=== PATIENT | female | born 2000 | race Caucasian/White ===

== ENCOUNTER 2020-11-18 15:24 | Emergency (ER) | payer SELFPAY ==
[~2020-11-18] VITALS: Ht 160 cm; Wt 100.0 kg
[2020-11-18 18:45] VITALS: BP 121/73
[2020-11-18] MEDS ORDERED: IBUP-1007 PO (18:46)
[2020-11-18] MEDS ORDERED: PRED-220 PO (18:47)
--- NOTE | 2020-11-18 18:48 | PHYS DOC ---
General Adult EDM: Chief Complaint: WRIST PAIN HPI: HPI: Patient is a 20 female presents to the emergency department complaining of numbness and tingling to her right hand and fingers for the past 2 weeks. Patient states she thinks she may have carpal tunnel syndrome. 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 Patient reports she purchased a thumb immobilizer to help however does not wear it while she works. Patient denies any injury to her right wrist or right hand. Patient denies any problems with her left wrist or hand. Patient states she is right-handed. Patient reports her last menstrual cycle 3 weeks ago, denies any other physical complaints or physical concerns. (SOFIA JACOBSON APRN) Review of Systems: Review of Systems: 14 body systems of review of systems have been reviewed. See HPI for pertinent positives and negative responses, otherwise all other systems are negative, nonpertinent or noncontributory. Constitutional: Negative except as outlined in HPI above. Skin: Negative except as outlined in HPI above. Eyes: Negative except as outlined in HPI above. HENT: Negative except as outlined in HPI above. Respiratory: Negative except as outlined in HPI above. Cardiovascular: Negative except as outlined in HPI above. GI: Negative except as outlined in HPI above. : Negative except as outlined in HPI above. Musculoskeletal: Negative except as outlined in HPI above. Integument: Negative except as outlined in HPI above. Neurologic: Negative except as outlined in HPI above. Endocrine: Negative except as outlined in HPI above. Lymphatic: Negative except as outlined in HPI above. Psychiatric: Negative except as outlined in HPI above. (SOFIA JACOBSON APRN) Heart Score: C/O Chest Pain: No Risk Factors: Risk Factors: DM, Current or recent (<one month) smoker, HTN, HLP, family history of CAD, obesity. Risk Scores: Score 0 - 3: 2.5% MACE over next 6 weeks - Discharge Home Score 4 - 6: 20.3% MACE over next 6 weeks - Admit for Clinical Observation Score 7 - 10: 72.7% MACE over next 6 weeks - Early Invasive Strategies (SOFIA JACOBSON APRN) Physical Exam: PE: Constitutional: Well developed, well nourished, no acute distress, non-toxic appearance. 20-year-old female in no apparent distress. HENT: Normocephalic, atraumatic. Eyes: Conjunctiva normal, no discharge. Neck: Normal range of motion, no stridor. Cardiovascular: No cyanosis appreciated, distal cap refill less than 2 seconds. Lungs & Thorax: Patient is in no respiratory distress, no audible adventitious lung sounds appreciated. Abdomen: Nontender, no abnormalities noted. Skin: Warm, dry, no erythema, no rash. Back: No tenderness, no deformities. Extremities: No tenderness, no cyanosis, no clubbing, ROM intact, no edema. Except for right wrist and hand. Positive [place]'s test, positive Phalen's test. No swelling or deformity appreciated. Distal cap refill less than 2 seconds, 2+ radial pulse. Full AROM/PROM. Neurologic: Alert and oriented X 3, normal motor function, normal sensory function, no focal deficits noted. Psychologic: Affect normal, judgement normal, mood normal. (SOFIA JACOBSON APRN) EKG: EKG: [] (SOFIA JACOBSON APRN) Radiology/Procedures: Radiology/Procedures: [] (SOFIA JACOBSON APRN) Course & Med Decision Making: Course & Med Decision Making Pertinent Labs and Imaging studies reviewed. (See chart for details) 20-year-old female, vital signs reviewed, presents to the emergency department with chief complaint of right wrist pain with hand tingliness for the past 2 weeks. Patient's description of events and physical examination consistent with carpal tunnel syndrome. An x-ray was ordered by ED attending physician Dr. Ham prior to patient's arrival to room or physical exam, wet read negative for acute fracture. Discussed findings with patient, will treat with 600 mg ibup rofen 3 times daily as needed pain, 20 mg prednisone p.o. daily x2 weeks followed by 10 mg prednisone p.o. x2 weeks, Velcro wrist splint. Follow-up with primary care for ongoing evaluation of carpal tunnel syndrome. Discussed with the patient all findings and diagnostic testing as well as the need to follow-up with their primary care provider for further evaluation and treatment or return to the ED if any new or worsening symptoms. Strict return precautions were also discussed at length, the patient voiced understanding and agreement with the discharge planning. The patient was nontoxic in appearance, in no apparent distress, and hemodynamically stable at the time of disposition. (SOFIA JACOBSON APRN) Course & Med Decision Making I have participated in the care of this patient and I have reviewed and agree with all pertinent clinical information above including history, exam, and recommendations. Lc Kaba DO (LC KABA DO) Fermin Disclaimer: Fermin Disclaimer: This electronic medical record was generated, in whole or in part, using a voice recognition dictation system. (SOFIA JACOBSON APRN) Departure Departure Impression: Primary Impression: Carpal tunnel syndrome of right wrist Disposition: HOME / SELF CARE / HOMELESS Condition: GOOD Referrals: NO PCP (PCP) Patient Instructions: Carpal Tunnel Syndrome, Carpal Tunnel Syndrome-SportsMed Additional Instructions: You were seen today in the emergency department for pain to your right wrist with tingling to your fingers of the right hand. Your Phalen's test and Tinel's test were positive indicating you most likely have a carpal tunnel syndrome. The x-ray performed did not show any concerning signs of fracture. As we discussed I am placing you on a nonsteroidal anti-inflammatory ibuprofen along with a oral steroid please take as directed. Please use the Velcro wrist splint as directed. Please follow-up with your primary care for ongoing evaluation of your carpal tunnel syndrome. Thank you for visiting our Emergency Department. It was a pleasure taking care of you today in the emergency department and we appreciate you trusting us with your care. If any additional problems come up don't hesitate to return to visit us. Please follow up with your primary care provider so they can plan additional care if needed and know about the problem that you had. If symptoms worsen come back to the Emergency Department. Any concerning symptoms that start such as chest pain, shortness of air, weakness or numbness on one side of the body, running high fevers or any other concerning symptoms return to the ER. EMERGENCY DEPARTMENT GENERAL DISCHARGE INSTRUCTIONS Thank you for coming to [facility] Emergency Department (ED) today and trusting us with you care. We trust that you had a positive experience in our Emergency Department. If you wish to speak to the department management, you may call the Director at [phone]. YOUR FOLLOW UP INSTRUCTIONS ARE FOLLOWS: 1. Do you have a private Doctor? If you do not have a private doctor, please ask for a resource list of physicians or clinics that may be able to assist you with follow up care. 2. The Emergency Physicain has interpreted your x-rays. The X-Ray specialist will also review them. If there is a change in the findings, you will be notified in 48 hours when at all possible. 3. A lab test or culture has been done, your results will be reviewed and you will be notified if you need a change in treatment. ADDITIONAL INSTRUCTIONS AND INFORMATION: 1. Your care today has been supervised by a physician who is specially trained in emergency care. Many problems require more than one evaluation for a complete diagnosis and treatment. We recommend that you schedule your follow up appointment as recommended to ensure complete treatment of you illness or injury. If you are unable to obtain follow up care and continue to have a problem, or if your condition worsens, we recommend that you return to the ED. 2. We are not able to safely determine your condition over the phone nor are we able to give sound medical advice over the phone. For these safety reasons, if you call for medical advice we will ask you to come to the ED for further evaluation. 3. If you have any questions regarding these discharge instructions please call the ED at [phone]. SAFETY INFORMATION: In the interest of safety, wellness, and injury prevention; we encourage you to wear your sealbelt, if you smoke; quite smoking, and we encourage family to use a protective helmet for bicycling and other sporting events that present an increased risk for head injury. IF YOUR SYMPTOMS WORSEN OR NEW SYMPTOMS DEVELOP, OR YOU HAVE CONCERNS ABOUT YOUR CONDITION; OR IF YOUR CONDITION WORSENS WHILE YOU ARE WAITING FOR YOUR FOLLOW UP APPOIN TMENT; EITHER CONTACT YOUR PRIMARY CARE DOCTOR, THE PHYSICIAN WHOSE NAME AND NUMBER YOU WERE GIVEN, OR RETURN TO THE ED IMMEDIATELY. Scripts Prednisone (PREDNISONE ) 10 Mg Tablet 10 MG PO DAILY, #42 TAB 0 Refills Take 2 tablets daily for 14 days, then reduce to 1 tablet daily for 14 days. Prov: SOFIA JACOBSON APRN 11/18/20 Ibuprofen (IBUPROFEN) 600 Mg Tablet 600 MG PO PRN Q6HRS PRN for INFLAMMATION, #20 TAB 0 Refills Prov: SOFIA JACOBSON APRN 11/18/20 SOFIA JACOBSON APRN Nov 18, 2020 18:48 LC KABA DO Nov 18, 2020 19:01
--- NOTE | 2020-11-18 18:53 | RAD ---
RIGHT WRIST, 3 VIEWS Indication: Reason: pain / Findings: There is no acute fracture or dislocation. No bony erosion is identified. The bony articulations are normal. The mineralization is normal. There is no soft tissue swelling or radiopaque foreign body. IMPRESSION: No acute fracture or dislocation. Electronically signed by: Kee Willett MD (11/18/2020 6:50 PM) RANDALLVARGHESE
[2020-11-18] MEDS ORDERED: predniSONE 20 MG TABLET PO ONE (19:15)
[2020-11-18] MEDS ORDERED: IBUPROFEN 200 MG TABLET. PO ONE (19:15)
== END 2020-11-18 19:25 | disposition home or self-care (01) ==
LOC: ER 15:24
DX: G56.01 Carpal tunnel syndrome, right upper limb (principal)
CPT/HCPCS: 29125; 73110; 99283; J7512

== ENCOUNTER 2021-07-07 11:29 | Emergency (ER) | payer SELFPAY ==
[~2021-07-07] VITALS: Ht 162.6 cm; Wt 108.4 kg
[2021-07-07 11:29] VITALS: BP 147/93
[~2021-07-07 11:29] MED LIST: IBUP-1007 PO; PRED-220 PO
[2021-07-07 12:34] LABS: INFLUENZA A PATIENT NEGATIVE (NEGATIVE); INFLUENZA B PATIENT NEGATIVE (NEGATIVE)
--- NOTE | 2021-07-07 12:48 | RAD ---
INDICATION: Reason: cough and fever / Spl. Instructions: / History: COMPARISON: None. FINDINGS: 2 view of chest obtained. Patchy opacity at the right lower lung with a possible additional mild linear opacity left lower lung . Cardiac mediastinal silhouette is unremarkable. There is some fullness of the pulmonary hilum on the lateral view which could be from prominent lymph nodes. Could also be from superimposition a perihila r infiltrate. IMPRESSION: * Focal opacity at the right greater than left lung base which could be secondary to pneumonia if th e patient has appropriate symptoms. Electronically signed by: Kwaku Ruelas MD (07/07/2021 12:46 PM) [id number]
[2021-07-07] MEDS ORDERED: AMOX1TAB11 PO (13:09)
[2021-07-07] MEDS ORDERED: AZIT250T PO (13:09)
--- NOTE | 2021-07-07 13:09 | PHYS DOC ---
Past Medical History Past Surgical History: No Surgical History General Adult EDM: Chief Complaint: FLU SYMPTOM HPI: HPI: Patient is a 21 year old [f__sex] who presents with [] Review of Systems: Review of Systems: Constitutional: Denies fever or chills. [] Eyes: Denies change in visual acuity. [] HENT: Denies nasal congestion or sore throat. [] Respiratory: Denies cough or shortness of breath. [] Cardiovascular: Denies chest pain or edema. [] GI: Denies abdominal pain, nausea, vomiting, bloody stools or diarrhea. [] : Denies dysuria. [] Musculoskeletal: Denies back pain or joint pain. [] Integument: Denies rash. [] Neurologic: Denies headache, focal weakness or sensory changes. [] Endocrine: Denies polyuria or polydipsia. [] Lymphatic: Denies swollen glands. [] Psychiatric: Denies depression or anxiety. [] Heart Score: C/O Chest Pain: No Risk Factors: Risk Factors: DM, Current or recent (<one month) smoker, HTN, HLP, family history of CAD, obesity. Risk Scores: Score 0 - 3: 2.5% MACE over next 6 weeks - Discharge Home Score 4 - 6: 20.3% MACE over next 6 weeks - Admit for Clinical Observation Score 7 - 10: 72.7% MACE over next 6 weeks - Early Invasive Strategies Allergies: Allergies: Allergies Coded Allergies Type Severity Reaction Last Updated Verified No Known Drug Allergies 11/18/20 No Physical Exam: PE: Constitutional: Well developed, well nourished, no acute distress, non-toxic appearance. [] HENT: Normocephalic, atraumatic, bilateral external ears normal, oropharynx moist, no oral exudates, nose normal. [] Eyes: PERRLA, EOMI, conjunctiva normal, no discharge. [] Neck: Normal range of motion, no tenderness, supple, no stridor. [] Cardiovascular:Heart rate regular rhythm, no murmur [] Lungs & Thorax: Bilateral breath sounds clear to auscultation [] Abdomen: Bowel sounds normal, soft, no tenderness, no masses, no pulsatile masses. [] Skin: Warm, dry, no erythema, no rash. [] Back: No tenderness, no CVA tenderness. [] Extremities: No tenderness, no cyanosis, no clubbing, ROM intact, no edema. [] Neurologic: Alert and oriented X 3, normal motor function, normal sensory function, no focal deficits noted. [] Psychologic: Affect normal, judgement normal, mood normal. [] Current Patient Data: Labs: Laboratory Tests Test 07/07/21 12:08 Influenza Type A Antigen Negative (NEGATIVE) Influenza Type B Antigen Negative (NEGATIVE) SARS-CoV-2 Antigen (Rapid) Negative (NEGATIVE) Vital Signs: Vital Signs Date Time Temp Pulse Resp B/P (MAP) Pulse Ox O2 Delivery O2 Flow Rate FiO2 07/07/21 11:29 97.7 91 18 147/93 (111) 97 Room Air 97.7 EKG: EKG: [] Radiology/Procedures: Radiology/Procedures: [REASON: cough and fever PROCEDURE: CHEST PA & LATERAL INDICATION: Reason: cough and fever / Spl. Instructions: / History: COMPARISON: None. FINDINGS: 2 view of chest obtained. Patchy opacity at the right lower lung with a possible additional mild linear opacity left lower lung. Cardiac mediastinal silhouette is unremarkable. There is some fullness of the pulmonary hilum on the lateral view which could be from prominent lymph nodes. Could also be from superimposition a perihilar infiltrate. IMPRESSION: * Focal opacity at the right greater than left lung base which could be secondary to pneumonia if the patient has appropriate symptoms. Electronically signed by: Kwaku Ruelas MD (07/07/2021 12:46 PM) [id number] ] Course & Med Decision Making: Course & Med Decision Making Pertinent Labs and Imaging studies reviewed. (See chart for details) 1300 reviewed radiological results with patient did inform her she has pneumonia, will treat her with oral antibiotics on an outpatient basis, patient states she does not have insurance or a primary care physician so I will give her a copy of community resources and a list of clinics that she can follow-up with for further management of this. Patient is in no acute distress and vital signs are stable. Patient verbalizes understanding and the need to quit vaping and smoking and to take all antibiotics as prescribed. Jungon Disclaimer: Fermin Disclaimer: This electronic medical record was generated, in whole or in part, using a voice recognition dictation system. Departure Departure Impression: Primary Impression: Pneumonia Qualified Codes: J18.9 - Pneumonia, unspecified organism Disposition: 01 HOME / SELF CARE / HOMELESS Condition: STABLE Referrals: NO PCP (PCP) Patient Instructions: Pneumonia, Adult, Smoking Cessation Additional Instructions: Augmentin take 1 tablet twice daily for 7 days Zithromax as directed for 5 days Stop smoking and vaping Return to the emergency department for increase shortness of breath, development of a fever that is not relieved by Tylenol and/or ibuprofen, chest pain, or inability to keep any by mouth fluid down Follow-up with your primary care physician or one of the listed clinics below in the next 5 to 7 days if your symptoms are no better. [facility] [address] [place] [address] [facility] [address] [place] [address] [facility] [address] [place] [address] [facility] [address] [place] [address] [facility] [address] [place] [address] [address] [place] [address] [place] [address] [facility] [address] [place] [address] [facility] [address] [place] [address] [facility] [address] [place] [address] [facility] [address] [place] [address] Scripts Azithromycin (ZITHROMAX) 250 Mg Tablet 1 PKG PO UD, #6 TAB Take 2 tablets on day 1 and then take 1 tablet daily for the next 4 days Prov: DRE GRIFFIN MEDICAL REIMBURSEMENT MANAGER 07/07/21 Amoxicillin/Potassium Clav (AMOX TR-K CLV 875-125 MG TAB) 1 Each Tablet 1 TAB PO BID, #14 TAB Prov: DRE GRIFFIN MEDICAL REIMBURSEMENT MANAGER 07/07/21 DRE GRIFFIN MEDICAL REIMBURSEMENT MANAGER Jul 07, 2021 13:09
== END 2021-07-07 13:17 | disposition home or self-care (01) ==
LOC: ER 11:29
DX: J18.9 Pneumonia, unspecified organism (principal); Z20.822 Contact with and (suspected) exposure to COVID-19
CPT/HCPCS: 71046; 87428; 99284